=== PATIENT | male | born 1960 | race Caucasian/White ===

== ENCOUNTER 2017-04-11 09:46 | Emergency (ER) | payer MEDICAID ==
[~2017-04-11] VITALS: Ht 167.6 cm; Wt 58.0 kg
[~2017-04-11 09:46] MED LIST: HYDR-3307 PO
[2017-04-11 10:47] LABS: BLOOD UREA NITROGEN 10 mg/dL (7-18)
[2017-04-11 10:54] LABS: IS PT STATUS REG ER OR PRE ER? YES
[2017-04-11 11:01] VITALS: BP 124/77
== END 2017-04-11 11:12 | disposition home or self-care (01) ==
LOC: ED 10:48
DX: F41.1 Generalized anxiety disorder (principal); R06.4 Hyperventilation; J44.9 Chronic obstructive pulmonary disease, unspecified; F17.210 Nicotine dependence, cigarettes, uncomplicated
CPT/HCPCS: 36415; 71010; 80048; 82040; 84484; 85025; 93005